=== PATIENT | female | born 1955 | race Caucasian/White ===

== ENCOUNTER 2016-09-05 06:45 | Day surgery (SDC) | payer BC, OTHER ==
[2016-09-01 14:36] VITALS: BMI 31.4
[2016-09-05] MEDS ORDERED: LIDOCAINE HCL 2% (20ML MULTI-DOSE VIAL) NR ONE (07:59)
[2016-09-05] MEDS ORDERED: ONDANSETRON 4 MG/2 ML VIAL ONE (07:59)
[2016-09-05] MEDS ORDERED: PROPOFOL 20 ML ONE ×2 (07:59)
[2016-09-05] MEDS ORDERED: RANITIDINE HCL 50 MG/2 ML VIAL ONE (08:00)
[2016-09-05 08:56] VITALS: TEMP 97.9
[2016-09-05 11:53] VITALS: BP 133/71; PULSE 68
--- NOTE | 2016-09-06 13:50 | PATH ---
Surgical Pathology Report Patient Name: ANDRY GARCIA [facility]. Rec. #: [id number] /Age/Gender: 1955 (Age: 60) / F Account: [id number] Location: [facility]-ENDOSCOPY Taken: 09/05/2016 Received: 09/05/2016 Reported: 09/06/2016 Physicians: Mando Bowles M.D. Specimen(s) Received BX PROCTITIS AND ULCER Clinical History History of diverticulosis Diverticulosis, proctitis and ulcer in rectum Final Diagnosis RECTUM, PROCTITIS AND ULCER, BIOPSY: SUPERFICIAL FRAGMENTS OF RECTAL MUCOSA WITH SURFACE EROSION AND FEW LAMINA PROPRIA NEUTROPHILS (SEE COMMENT). NO EVIDENCE OF GRANULOMATA OR DYSPLASIA. Comment: The findings are nonspecific and may represent focal active inflammation of various etiologies including infectious and drug/toxin injury. The material is superficial limiting the assessment of chronicity. Endoscopic correlations and followup are suggested. Electronically Signed Soiltario Garcia M.D. Gross Description This is a formalin, labeled "biopsy proctitis and ulcer" after fragments of plata tissue 0.1 and 0.2 cm in greatest dimension. Submitted entirely in cassette. AF/09/05/2016 final/09/05/2016
== END 2016-09-05 10:25 | disposition home or self-care (01) ==
LOC: JASU-ENDO 06:45
PROVIDERS: ATTEND Internal Medicine Gastroenterology
PROC: 0DBP8ZX Excision of Rectum, Via Natural or Artificial Opening Endoscopic, Diagnostic (ICD-10-PCS; principal; 2016-09-05 08:00)
DX: K57.90 Diverticulosis of intestine, part unspecified, without perforation or abscess without bleeding (principal); K62.6 Ulcer of anus and rectum; K64.8 Other hemorrhoids
CPT/HCPCS: 88305-TC

== ENCOUNTER 2016-10-28 12:13 | Day surgery (SDC) | payer BC, OTHER ==
[2016-10-27 12:02] VITALS: BMI 30.9
[2016-10-28] MEDS ORDERED: PROPOFOL 20 ML ONE ×3 (13:15)
[2016-10-28] MEDS ORDERED: LIDOCAINE HCL/PF 2% SDV 5ML VIAL ONE (13:15)
[2016-10-28 13:45] VITALS: TEMP 98.5
[2016-10-28 14:34] VITALS: BP 137/67; PULSE 81
--- NOTE | 2016-11-01 13:13 | PATH ---
Surgical Pathology Report Patient Name: ANDRY GARCIA [facility]. Rec. #: [id number] /Age/Gender: 1955 (Age: 61) / F Account: [id number] Location: U-ENDOSCOPY Taken: 10/28/2016 Received: 10/31/2016 Reported: 11/01/2016 Physicians: Mando Bowles M.D. Specimen(s) Received BX RECTUM Clinical History Ulcer of rectum Ulcerative proctitis Final Diagnosis RECTUM, BIOPSY: SUPERFICIAL FRAGMENTS OF ULCERATED RECTAL MUCOSA WITH FOCAL ACTIVE INFLAMMATION, GRANULATION TISSUE FORMATION, AND FOCAL CRYPTS ALTERATION (SEE COMMENT). NO EVIDENCE OF GRANULOMATA OR DYSPLASIA. Comment: While the material is superficial, the findings are suspicious for chronicity. Clinical, endoscopic, serological correlations and followup are suggested. Electronically Signed Solitario Garcia M.D. Gross Description Received in formalin, labeled "biopsy rectum" is a plata, irregular portion of soft tissue measuring 0.1 cm in greatest dimension. The specimen is submitted in toto in one cassette. 10/31/2016 [facility]10/31/2016
== END 2016-10-28 14:41 | disposition home or self-care (01) ==
LOC: JASU-ENDO 12:13
PROVIDERS: ATTEND Internal Medicine Gastroenterology
PROC: 0DBP8ZX Excision of Rectum, Via Natural or Artificial Opening Endoscopic, Diagnostic (ICD-10-PCS; principal; 2016-10-28 13:00)
DX: K62.6 Ulcer of anus and rectum (principal); K64.8 Other hemorrhoids
CPT/HCPCS: 88305-TC

== ENCOUNTER 2020-06-30 04:37 | Day surgery (SDC) | payer OTHER, BC ==
[2020-06-29 09:35] VITALS: BMI 31.1
[2020-06-30] MEDS ORDERED: DEXAMETHASONE SOD PHOSPHATE 4 MG/1 ML VIAL ONE (07:08)
[2020-06-30] MEDS ORDERED: PROPOFOL 20 ML ONE (07:08)
[2020-06-30] MEDS ORDERED: LIDOCAINE HCL/PF 2% SDV 5ML VIAL ONE (07:08)
[2020-06-30] MEDS ORDERED: ONDANSETRON 4 MG/2 ML VIAL ONE (07:08)
[2020-06-30] MEDS ORDERED: MIDAZOLAM HCL 2 MG/2 ML SINGLE DOSE VIAL ONE (07:09)
[2020-06-30] MEDS ORDERED: oxyCODONE HCL 5 MG TABLET PO PRN ×2 (07:50)
[2020-06-30] MEDS ORDERED: ONDANSETRON 4 MG/2 ML VIAL IVPUSH PRN (07:50)
[2020-06-30] MEDS ORDERED: LACTATED RINGERS SOLUTION 1,000 ML IV SCH (08:00)
[2020-06-30] MEDS ORDERED: KETOROLAC TROMETHAMINE 30 MG/1 ML VIAL ONE (08:06)
[2020-06-30 12:46] VITALS: BP 138/78; PULSE 71; TEMP 97.5
== END 2020-06-30 12:46 | disposition home or self-care (01) ==
LOC: JASU-SURG 04:37
PROVIDERS: ATTEND Obstetrics & Gynecology
PROC: 0UB98ZZ Excision of Uterus, Via Natural or Artificial Opening Endoscopic (ICD-10-PCS; principal; 2020-06-30 07:30)
PROC: 0UDB8ZX Extraction of Endometrium, Via Natural or Artificial Opening Endoscopic, Diagnostic (ICD-10-PCS; 2020-06-30 07:30)
DX: N84.0 Polyp of corpus uteri (principal)
CPT/HCPCS: 88305-TC; 94760

== ENCOUNTER 2020-11-16 04:53 | Day surgery (SDC) | payer OTHER, BC ==
[2020-11-13 14:58] VITALS: BMI 32.9
[2020-11-16 08:46] VITALS: TEMP 98
[2020-11-16 09:52] VITALS: BP 139/75; PULSE 67
== END 2020-11-16 10:00 | disposition home or self-care (01) ==
LOC: JASU-ENDO 04:53
PROVIDERS: ATTEND Internal Medicine Gastroenterology
PROC: 0DBL8ZX Excision of Transverse Colon, Via Natural or Artificial Opening Endoscopic, Diagnostic (ICD-10-PCS; 2020-11-16)
PROC: 0DBN8ZX Excision of Sigmoid Colon, Via Natural or Artificial Opening Endoscopic, Diagnostic (ICD-10-PCS; 2020-11-16)
PROC: 0DBP8ZX Excision of Rectum, Via Natural or Artificial Opening Endoscopic, Diagnostic (ICD-10-PCS; 2020-11-16)
PROC: 0DBB8ZX Excision of Ileum, Via Natural or Artificial Opening Endoscopic, Diagnostic (ICD-10-PCS; 2020-11-16)
PROC: 0DBH8ZX Excision of Cecum, Via Natural or Artificial Opening Endoscopic, Diagnostic (ICD-10-PCS; 2020-11-16)
PROC: 0DBK8ZX Excision of Ascending Colon, Via Natural or Artificial Opening Endoscopic, Diagnostic (ICD-10-PCS; principal; 2020-11-16 08:00)
DX: Z12.11 Encounter for screening for malignant neoplasm of colon (principal); K51.80 Other ulcerative colitis without complications; K57.30 Diverticulosis of large intestine without perforation or abscess without bleeding; K64.8 Other hemorrhoids
CPT/HCPCS: 88305-TC

== ENCOUNTER 2022-03-11 04:09 | Day surgery (SDC) | payer OTHER, BC ==
[2022-03-09 13:39] VITALS: BMI 32.1
[~2022-03-11 04:09] MED LIST: DEXAMETHASONE SOD PHOSPHATE 4 MG/1 ML VIAL NR ONE; IOHEXOL 180 MG/1 ML ML IJ ONE; LIDOCAINE 1% P/F 10 MG/ML VIAL PNB ONE
[2022-03-11] MEDS ORDERED: LIDOCAINE HCL/PF 1% SDV 5ML VIAL ONE (07:30)
[2022-03-11] MEDS ORDERED: DEXAMETHASONE SOD PHOSPHATE 4 MG/1 ML VIAL ONE (07:30)
[2022-03-11] MEDS ORDERED: DEXAMETHASONE SOD PHOSPHATE 10 MG/1 ML VIAL ONE (12:20)
[2022-03-11] MEDS ORDERED: DEXAMETHASONE SOD PHOSPHATE 4 MG/1 ML VIAL NR ONE (13:09)
[2022-03-11] MEDS ORDERED: IOHEXOL 180 MG/1 ML ML IJ ONE (13:09)
[2022-03-11] MEDS ORDERED: LIDOCAINE 1% P/F 10 MG/ML VIAL PNB ONE (13:09)
[2022-03-11] MEDS ORDERED: ACETAMINOPHEN 325 MG TABLET (FP) ONE (13:52)
[2022-03-11] MEDS ORDERED: ACETAMINOPHEN 325 MG TABLET (FP) PO ONE (13:55)
[2022-03-11 14:56] VITALS: BP 134/73; PULSE 62; RESP 18; TEMP 97.7
== END 2022-03-11 14:12 | disposition home or self-care (01) ==
LOC: JASU-SURG 04:09
PROVIDERS: ATTEND Pain Medicine Pain Medicine
PROC: 3E0R3BZ Introduction of Anesthetic Agent into Spinal Canal, Percutaneous Approach (ICD-10-PCS; 2022-03-11)
PROC: 3E0R33Z Introduction of Anti-inflammatory into Spinal Canal, Percutaneous Approach (ICD-10-PCS; principal; 2022-03-11 12:30)
DX: M54.16 Radiculopathy, lumbar region (principal); M48.061 Spinal stenosis, lumbar region without neurogenic claudication
CPT/HCPCS: 76000-TC-FY; J1100

== ENCOUNTER 2022-05-24 04:14 | Day surgery (SDC) | payer OTHER, BC ==
[2022-05-23 11:20] VITALS: BMI 32.1
[~2022-05-24 04:14] MED LIST changes: +ACETAMINOPHEN 500 MG TABLET (FP) PO PRN; -DEXAMETHASONE SOD PHOSPHATE 4 MG/1 ML VIAL NR ONE; -IOHEXOL 180 MG/1 ML ML IJ ONE; -LIDOCAINE 1% P/F 10 MG/ML VIAL PNB ONE
[2022-05-24] MEDS ORDERED: LIDOCAINE 1% P/F 10 MG/ML VIAL INF ONE (10:02)
[2022-05-24] MEDS ORDERED: IOHEXOL 180 MG/1 ML ML IJ ONE (10:02)
[2022-05-24] MEDS ORDERED: BUPIVACAINE HCL/PF 0.5% (5MG/ML) 10 ML VIAL IJ ONE (10:03)
[2022-05-24] MEDS ORDERED: TRIAMCINOLONE ACET 40MG/1ML VIAL IM ONE (10:03)
[2022-05-24] MEDS ORDERED: ACETAMINOPHEN 500 MG TABLET (FP) ONE (10:22)
[2022-05-24 11:54] VITALS: RESP 17
[2022-05-24 11:58] VITALS: BP 139/70; PULSE 68; TEMP 98.1
== END 2022-05-24 11:42 | disposition home or self-care (01) ==
LOC: JASU-SURG 04:14
PROVIDERS: ATTEND Pain Medicine Pain Medicine
PROC: 3E0U3BZ Introduction of Anesthetic Agent into Joints, Percutaneous Approach (ICD-10-PCS; 2022-05-24)
PROC: 3E0U33Z Introduction of Anti-inflammatory into Joints, Percutaneous Approach (ICD-10-PCS; principal; 2022-05-24 10:00)
DX: M53.3 Sacrococcygeal disorders, not elsewhere classified (principal)
CPT/HCPCS: 76000-TC-FY

== ENCOUNTER 2023-09-13 05:02 | Day surgery (SDC) | payer OTHER, BC ==
[2023-09-12 10:41] VITALS: BMI 30.4
[2023-09-13 08:09] LABS: BASO % 0.8 % (0-2.0); EOS % 3.6 % (0-4.5); HEMATOCRIT 38.8 % (32.4-45.2); LYMPH % 28.9 % (8-40); MCH 30.4 pg (25.7-33.7); MCHC 33.4 g/dl (32.0-36.0); MEAN PLT VOLUME 10.2 fl (7.5-11.1); MONO % 8.5 % (3.8-10.2); NEUT % 58.2 % (42.8-82.8); PLATELET COUNT 195 10^3/uL (134-434); RBC 4.26 M/mm3 (3.60-5.2); RDW 13.8 % (11.6-15.6); WHITE BLOOD COUNT 8.4 K/mm3 (4.0-10.0)
[2023-09-13 08:16] LABS: INR 1.05 (0.83-1.09); PROTHROMBIN TIME (PATIENT) 11.9 SEC (9.7-13.0)
[2023-09-13] MEDS ORDERED: FENTANYL CITRATE/PF 50 MCG/ML VIAL ONE (09:51)
[2023-09-13] MEDS ORDERED: MIDAZOLAM HCL 2 MG/2 ML SINGLE DOSE VIAL ONE (09:51)
[2023-09-13 12:24] VITALS: PULSE 65; RESP 16; TEMP 98.2
[2023-09-13 12:40] VITALS: BP 140/70
== END 2023-09-13 12:46 | disposition home or self-care (01) ==
LOC: JRADIR 05:02
PROVIDERS: ATTEND Internal Medicine Hematology & Oncology
PROC: 07DR3ZX Extraction of Iliac Bone Marrow, Percutaneous Approach, Diagnostic (ICD-10-PCS; principal; 2023-09-13)
DX: D47.2 Monoclonal gammopathy (principal)
CPT/HCPCS: 20225; 36415; 38222; 77012-TC; 85025; 85610; 88300-TC